=== PATIENT | male | born 1935 | race Caucasian/White ===

== ENCOUNTER 2017-03-05 18:49 | Inpatient (IN) | payer OTHER ==
--- NOTE | 2017-03-05 19:38 | SOAPPROG ---
ARIES Progress Note Assessment/Plan: Assessment: 1. Gross hematuria w/ clot retention. 2. BPH. 3. Medication-induced coagulopathy. Plan: 1. CBI. 2. Check labs now and in AM. 3. Reassess extent of hematuria in AM. 4. NPO after MN in case surgery is necessary. 5. Continue Plavix and Eliquis for now. Might need to have these stopped if hematuria persists despite above measures. 6. Will eventually need CT urogram to assess upper urinary tracts for causes of gross hematuria -- will hopefully obtain tomorrow. Subjective: Pt. seen in my office late this afternoon with above-mentioned diagnoses. Direct admit from my office to med/surg. unit w/ telemetry. Hospitalists to be admitting. Discussed w/ Dr. Espinal. ICD10 Worksheet Patient Problems: Problems Problem Status Onset Clot retention of urine Acute Gross hematuria Acute - ICD10 Problem Qualifiers (1) Gross hematuria (2) Clot retention of urine
[2017-03-05] MEDS ORDERED: ONDANSETRON DISINTEGRATING 4 MG TAB PO PRN (20:49)
[2017-03-05] MEDS ORDERED: ONDANSETRON 4 MG/2 ML VIAL IVP PRN (20:49)
[2017-03-05] MEDS ORDERED: ACETAMINOPHEN 325 MG TAB PO PRN (20:49)
[2017-03-05 20:58] LABS: INR 1.3 (0.83-1.16); PROTIME(PATIENT) 16.4 SEC (12.0-15.0)
[2017-03-05] MEDS ORDERED: LR 1,000 ML IV SCH (21:00)
[2017-03-05] MEDS ORDERED: oxyCODONE IR 5 MG TAB PO PRN (21:16)
--- NOTE | 2017-03-05 21:30 | GHP ---
[f rep st] HISTORY AND PHYSICAL DATE OF ADMISSION: 03/05/2017 CHIEF COMPLAINT: Hematuria. PRIMARY UPPER LEATHER CUTTER: Dr. Lutz. HPI: An 81-year-old male with history of coronary artery disease with 2 stents to LAD in October 2016 , urinary retention, recent UTI, who was sent from Dr. Miller's office for persistent hematuria. Per his , he had blood tinged urine starting this past Saturday on the in the morning, however, became very dark with clots later in the day. He denies any dizziness or lightheadedness this weeke nd. Pain in the penis secondary to the catheter. Denies any bladder spasms. He is currently on Trin[place] vix and Eliquis. REVIEW OF SYSTEMS: I completed a 10-point review of systems, negative except as noted in HPI. PAST MEDICAL HISTORY: Hypertension, atrial flutter on Eliquis, coronary artery disease with [address] ents October 2016, history of diverticulosis, history of urinary retention, GERD, Alzheimer's. PAST SURGICAL HISTORY: Incarcerated femoral hernia, bilateral inguinal repair, bilateral RONALD. SOCIAL HISTORY: Lives in [place]. Drinks 1-2 glasses of wine a day. He is . His is an RN. A 50 year pack history of tobacco. No longer smoking. No drugs. FAMILY HISTORY: Dad had TB. Mother with an OK. ALLERGIES: Penicillin. HOME MEDICATIONS: Guaifenesin, Viagra, simvastatin, potassium, omeprazole, Metamucil, lisinopril, ib uprofen, , Celebrex, aspirin 81 mg daily, azithromycin. PHYSICAL EXAMINATION: VITAL SIGNS: Temperature 36.6, blood pressure 134/74, heart rate 86, respirat ions 16, 94% on room air. GENERAL: Well-appearing male sitting in bed, in no acute distress. HEENT : PERRLA. EOMI. Oropharynx clear. CV: Regular rate and rhythm. No murmurs, gallops, rubs. LUNG S: Clear to auscultation. No crackle, wheezing. CV: No lower extremity edema. ABDOMEN: Soft, no ntender, nondistended. : Jacobs in place with dark sanguinous output. No CVA or suprapubic tender ness. MUSCULOSKELETAL: 5/5 upper lower extremity strength. NEURO: 2 through 12 intact. PSYCH: A lert and oriented x3. LABORATORY DATA: WBC 8.5, hemoglobin 14, hematocrit 41, platelets 250. Coags and BMP pending. Base line creatinine 03/02/2017 is 1.2. ASSESSMENT AND PLAN: 1. Hematuria: Unclear etiology at this point. He was sent over from Dr. Miller's office, who plans for continuous bladder irrigation overnight. We will keep n.p.o. after midnight in case of surgery. Given risks versus benefits of recent stents, we will continue Plavix and Eliquis. His H and H is stable. We will repeat this. We will likely need a CT urogram. 2. History of coronary artery disease. Recent left anterior descending stents in October. We will c ontinue aspirin and Plavix at this time. 3. Atrial flutter: Continue Eliquis. 4. Gastroesophageal reflux disease, stable. 5. Recent urinary tract infection. We will continue Bactrim, is on day 4 of 7. 6. History of diverticulosis. No rectal bleeding per his report. 7. Hypertension. We will hold lisinopril with hematuria and reassess in the morning. 8. Diet regular, n.p.o. after midnight. 9. Deep vein thrombosis prophylaxis on Lovenox. DISPOSITION: The patient warrants inpatient admission given acute hematuria, warranting CBI and furt her imaging. /[id number]/MODL
[2017-03-05] MEDS ORDERED: PSYLLIUM METAMUCIL 1 PKT PO PRN (21:58)
[2017-03-05] MEDS: APIXABAN 5 MG TAB PO SCH (22:54)
[2017-03-05] MEDS: TAMSULOSIN HCL 0.4 MG CAP PO SCH (22:54)
[2017-03-05] MEDS: CLOPIDOGREL BISULFATE 75 MG TAB PO SCH (22:54)
[2017-03-05] MEDS: ATORVASTATIN CALCIUM 40 MG TAB PO SCH (22:54)
[2017-03-05] MEDS: SULFAMETHOX/TMP 800/160 MG 1 TAB PO SCH (22:54)
[2017-03-05] MEDS: DONEPEZIL HCL 5 MG TAB PO SCH (22:54)
[2017-03-05] MEDS ORDERED: diphenhydrAMINE 25 MG CAP PO PRN (23:29)
[2017-03-05] MEDS: MELATONIN 3 MG TAB PO SCH (23:43)
[2017-03-06] MEDS ORDERED: SULFAMETHOX/TMP 800/160 MG 1 TAB PO SCH (09:00)
[2017-03-06] MEDS ORDERED: Herbals/Supplements -Info Only PO SCH (09:00)
--- NOTE | 2017-03-06 09:32 | PDMN ---
Medical Necessity Medical necessity: Patient meets inpatient criteria per physician note and [facility] Urologic Disease GRG - (gross hematuria requiring inpatient care/clot retention after cath and irrigation; direct admission from urologist's office w/ gross hematuria w/clots since Sat (4 days); on Plavix and Eliquis w/history of CAD and 2 stents to LAD in Oct, 2016; anticipated LOS > 2 midnights for CBI and likely surgery.)
[2017-03-06] MEDS: APIXABAN 5 MG TAB PO SCH (09:38)
[2017-03-06] MEDS: SULFAMETHOX/TMP 800/160 MG 1 TAB PO SCH ×2 (09:38→20:30)
[2017-03-06] MEDS: PANTOPRAZOLE SODIUM 40 MG TAB PO SCH (09:38)
[2017-03-06] MEDS ORDERED: IOPAMIDOL (ISOVUE-300) 100 ML BTL ONE (10:29)
--- NOTE | 2017-03-06 10:46 | HOSPPROG ---
Hospitalist Progress Note Assessment/Plan: Patient is an 81-year-old male with a history of coronary artery disease with 2 stents to his LAD in October of 2016. He has a history of urinary retention and also had a recent urinary tract infection. He was sent from the urologist's office for persistent hematuria. Today is my 1st encounter with the patient. Chart reviewed. * hematuria -hemoglobin hematocrit are stable -he is getting continuous bladder irrigation -urine continues to be banks red * history coronary artery disease with stents in October -on Plavix -his senior application software engineer is Dr. Nicolas. [phone] * a flutter -Eliquis -currently in sinus rhythm * recent urinary tract infection -day 5 out of 7 for Bactrim treatment * hypertension -currently hypotensive will hold his PRESLEY-inhibitor * plan. Will await further evaluation from the CT scan of the abdomen pelvis. Will discuss his care with Dr. Miller Subjective: Serafin is hungry and wants to eat. Objective: Vital Signs Temp Pulse Resp BP Pulse Ox 37.2 C 75 16 95/61 L 90 L 03/06/17 08:00 03/06/17 08:00 03/06/17 08:00 03/06/17 08:00 03/06/17 08:00 Laboratory Results 03/06/17 05:19 03/05/17 20:40 03/05/17 03/06/17 03/07/17 05:59 05:59 05:59 Intake Total 600 Output Total 1115 Balance -515 PT 16.4 SEC (12.0-15.0) H 03/05/17 20:40 INR 1.30 (0.83-1.16) H 03/05/17 20:40 - Physical Exam Constitutional: no apparent distress, appears nourished, not in pain Eyes: PERRL Ears, Nose, Mouth, Throat: hearing normal Cardiovascular: regular rate and rhythym Respiratory: no respiratory distress Gastrointestinal: normoactive bowel sounds Genitourinary: murray in urethra (banks colored urine) Skin: warm, normal color Musculoskeletal: full muscle strength Neurologic: AAOx3 Psychiatric: interacting appropriately ICD10 Worksheet Patient Problems: Problems Problem Status Onset Clot retention of urine Acute Gross hematuria Acute
[2017-03-06] MEDS ORDERED: NS 1,000 ML IV SCH (11:00)
[2017-03-06] MEDS: AMIODARONE HCL 200 MG TAB PO SCH (12:01)
--- NOTE | 2017-03-06 13:55 | SOAPPROG ---
SOAP Progress Note Assessment/Plan: Assessment: 1. Gross hematuria w/ clot retention: stable. Continued hematuria even w/ CBI, most likely due to coagulopathy. 2. BPH w/ obstruction: this is most likely the etiology for his hematuria. 3. Medication-induced coagulopathy. 4. Kidneys look great on CT urogram. No large clots noted w/in the bladder on CT. Plan: 1. Continue CBI. 2. Reassess hematuria Thurs AM. Even intraoperative prostate fulguration might not successfully stop his bleeding due to his continued intake of Plavix and Eliquis. It would certainly be beneficial to stop at least 1 of these, and it probably makes more sense to stop Eliquis in light of its much shorter half- life. I have discussed this w/ Nenita Ramirez & she will address this w/ his supervisor warping department in [place], or consult [facility] if necessary. 4. NPO again after MN in case surgery is necessary on . Subjective: No complaints. Interested in CT findings. Wants to eat. Objective: Vital Signs Temp Pulse Resp BP Pulse Ox 36.9 C 73 16 117/67 91 L 03/06/17 12:00 03/06/17 12:00 03/06/17 12:00 03/06/17 12:00 03/06/17 12:00 Laboratory Results 03/06/17 05:19 03/05/17 20:40 03/05/17 03/06/17 03/07/17 05:59 05:59 05:59 Intake Total 600 Output Total 1115 Balance -515 PT 16.4 SEC (12.0-15.0) H 03/05/17 20:40 INR 1.30 (0.83-1.16) H 03/05/17 20:40 Physical Exam - Physical Exam General Appearance: WD/WN, alert, no apparent distress Abdomen: non-tender, soft Male Genitalia: other (urine bloody w/o clots on high-rate CBI) Skin: warm/dry Extremities: normal inspection Neuro/Psych: alert, normal mood/affect, oriented x 3 ICD10 Worksheet Patient Problems: Problems Problem Status Onset Clot retention of urine Acute Gross hematuria Acute - ICD10 Problem Qualifiers (1) Gross hematuria (2) Clot retention of urine
--- NOTE | 2017-03-06 16:23 | ASMTCMCOM ---
CM Note CM Note Notes: Anticipate dc home with support of RN spouse when medically stable. CM available if needs/changes. Date Signed: 03/06/2017 04:23 PM Electronically Signed By:Corrie Pettit RN
[2017-03-06] MEDS ORDERED: LACTULOSE 20 GM/30 ML UDCUP PO PRN (19:28)
[2017-03-06] MEDS ORDERED: POLYETHYLENE GLYCOL 3350 17 GM PKT PO PRN (19:28)
[2017-03-06] MEDS ORDERED: BISACODYL 10 MG SUPP PR PRN (19:28)
[2017-03-06] MEDS ORDERED: MAGNESIUM HYDROXIDE 30 ML UDCUP PO PRN (19:28)
[2017-03-06] MEDS: CLOPIDOGREL BISULFATE 75 MG TAB PO SCH (20:30)
[2017-03-06] MEDS: TAMSULOSIN HCL 0.4 MG CAP PO SCH (20:30)
[2017-03-06] MEDS: SENNOSIDES/DOCUSATE SODIUM TAB PO SCH (20:30)
[2017-03-06] MEDS: ATORVASTATIN CALCIUM 40 MG TAB PO SCH (20:31)
[2017-03-06] MEDS: MELATONIN 3 MG TAB PO SCH (20:31)
[2017-03-06] MEDS: DONEPEZIL HCL 5 MG TAB PO SCH (20:31)
[2017-03-06] MEDS ORDERED: MELATONIN 3 MG TAB PO SCH (21:00)
[2017-03-07] MEDS ORDERED: LR 1,000 ML IV SCH (01:30)
[2017-03-07] MEDS: SULFAMETHOX/TMP 800/160 MG 1 TAB PO SCH ×2 (09:08→21:42)
[2017-03-07] MEDS: SENNOSIDES/DOCUSATE SODIUM TAB PO SCH ×2 (09:09→21:42)
[2017-03-07] MEDS: PANTOPRAZOLE SODIUM 40 MG TAB PO SCH (09:10)
[2017-03-07] MEDS: AMIODARONE HCL 200 MG TAB PO SCH (09:10)
--- NOTE | 2017-03-07 09:31 | SOAPPROG ---
SOAP Progress Note Assessment/Plan: Assessment: 1. Gross hematuria w/ clot retention: stable. Significant hematuria improvement since yesterday. 2. BPH w/ obstruction: this is most likely the etiology for his hematuria. 3. Medication-induced coagulopathy. Eliquis stopped yesterday (approval given by pt's industrial spray painter). 4. Kidneys look great on CT urogram. No large clots noted w/in the bladder on CT. Plan: 1. Discontinue CBI, but continue indwelling Jacobs today. 2. Continue observation today. Pt. may ambulate. 3. Continue to hold Eliquis. Subjective: No complaints. Anxious to go home. Objective: Vital Signs Temp Pulse Resp BP Pulse Ox 36.6 C 70 18 118/63 92 03/07/17 07:47 03/07/17 07:47 03/07/17 07:47 03/07/17 07:47 03/07/17 07:47 Laboratory Results 03/07/17 05:27 03/07/17 05:27 03/06/17 03/07/17 03/08/17 05:59 05:59 05:59 Intake Total 600 Output Total 1115 2925 Balance -515 -2925 PT 16.4 SEC (12.0-15.0) H 03/05/17 20:40 INR 1.30 (0.83-1.16) H 03/05/17 20:40 Physical Exam - Physical Exam General Appearance: WD/WN, alert, no apparent distress Abdomen: non-tender, soft Male Genitalia: other (urine clear on low-rate CBI) Skin: warm/dry Extremities: non-tender, normal inspection Neuro/Psych: alert, normal mood/affect, oriented x 3 ICD10 Worksheet Patient Problems: Problems Problem Status Onset Clot retention of urine Acute Gross hematuria Acute - ICD10 Problem Qualifiers (1) Gross hematuria (2) Clot retention of urine
[2017-03-07] MEDS: PSEUDOEPHEDRINE HCL 30 MG TAB PO PRN ×2 (12:57→19:13)
--- NOTE | 2017-03-07 13:42 | HOSPPROG ---
Hospitalist Progress Note Assessment/Plan: Hospitalist Progress Note Assessment/Plan: Patient is an 81-year-old male with a history of coronary artery disease with 2 stents to his LAD in October of 2016. He has a history of urinary retention and also had a recent urinary tract infection. He was sent from the urologist's office for persistent hematuria. Today is my 1st encounter with the patient. Chart reviewed. * hematuria -hemoglobin hematocrit are stable -he is getting continuous bladder irrigation, stopped this am and now restarted for reoccurring bleeding -urine continues to be banks red * history coronary artery disease with stents in October -on Plavix -his property administrator is Dr. Nicolas. [phone] -hold eliquis -follow up when to restart * a flutter -Eliquis -currently in sinus rhythm * recent urinary tract infection -day 6 out of 7 for Bactrim treatment * hypertension -currently hypotensive will hold his PRESLEY-inhibitor * plan. cont CBI, possibly home with murray? per Dr Chelly prado. Subjective: Felling congested. Eager to go home. Objective: Vital Signs Temp Pulse Resp BP Pulse Ox 36.5 C 87 18 108/52 L 95 03/07/17 12:00 03/07/17 12:00 03/07/17 12:00 03/07/17 12:00 03/07/17 12:00 Laboratory Results 03/07/17 05:27 03/07/17 05:27 03/06/17 03/07/17 03/08/17 05:59 05:59 05:59 Intake Total 600 Output Total 1115 2925 Balance -515 -2925 PT 16.4 SEC (12.0-15.0) H 03/05/17 20:40 INR 1.30 (0.83-1.16) H 03/05/17 20:40 - Physical Exam Constitutional: no apparent distress, appears nourished, not in pain Eyes: PERRL, anicteric sclera Ears, Nose, Mouth, Throat: moist mucous membranes, hearing normal, ears appear normal Cardiovascular: No JVD, No tachycardia, No edema Respiratory: no respiratory distress, no rales or rhonchi, reduced air movement Gastrointestinal: normoactive bowel sounds, No tenderness, No ascites Genitourinary: murray in urethra, other (hematuria) Skin: warm, normal color, No erythema Musculoskeletal: normal joint ROM, no joint effusions, generalized weakness Neurologic: AAOx3 Psychiatric: interacting appropriately, not anxious, not encephalopathic, thought process linear ICD10 Worksheet Patient Problems: Problems Problem Status Onset Gross hematuria Acute Clot retention of urine Acute
[2017-03-07] MEDS ORDERED: OPIUM/BELLADONNA ALKALO SUPP PR PRN (18:11)
[2017-03-07] MEDS: CLOPIDOGREL BISULFATE 75 MG TAB PO SCH (21:41)
[2017-03-07] MEDS: MELATONIN 3 MG TAB PO SCH (21:41)
[2017-03-07] MEDS: ATORVASTATIN CALCIUM 40 MG TAB PO SCH (21:41)
[2017-03-07] MEDS: TAMSULOSIN HCL 0.4 MG CAP PO SCH (21:41)
[2017-03-07] MEDS: DONEPEZIL HCL 5 MG TAB PO SCH (21:42)
[2017-03-08] MEDS: SENNOSIDES/DOCUSATE SODIUM TAB PO SCH ×2 (09:19→21:12)
[2017-03-08] MEDS: AMIODARONE HCL 200 MG TAB PO SCH (09:19)
[2017-03-08] MEDS: SULFAMETHOX/TMP 800/160 MG 1 TAB PO SCH (09:19)
[2017-03-08] MEDS: PANTOPRAZOLE SODIUM 40 MG TAB PO SCH (09:19)
[2017-03-08] MEDS: PSEUDOEPHEDRINE HCL 30 MG TAB PO PRN (09:20)
[2017-03-08] MEDS ORDERED: IPRATROPIUM/ALBUTEROL 3 ML DEYVIAL IH PRN (11:34)
--- NOTE | 2017-03-08 11:48 | SOAPPROG ---
SOAP Progress Note Assessment/Plan: Assessment: 1. Gross hematuria w/ clot retention: improved. Had recurrent darkening of his urine after stopping CBI yesterday, but I believe this is more likely due to remaining clots w/in the bladder and not active bleeding. 2. BPH w/ obstruction: this is most likely the etiology for his hematuria. 3. Medication-induced coagulopathy. Eliquis stopped on 03/06. 4. Kidneys look great on CT urogram. No large clots noted w/in the bladder on CT. Plan: 1. Discontinue Jacobs now. Discharge home later today, hopefully without Jacobs if he is voiding adequately after removal. 2. Continue to hold Eliquis after discharge. 3. Due to his severe BPH, recommend he stay off all decongestants (such as Sudafed) -- discussed w/ pt. & hospitalist service. 4. Stop Bactrim. 5. Continue Flomax and begin finasteride (Rx. on chart). 6. I will see him back in the office next week. Subjective: No complaints. States he feels great except for ongoing nasal and sinus congestion which has been an issue for him for more than 1 week. Objective: Vital Signs Temp Pulse Resp BP Pulse Ox 36.6 C 80 16 132/68 H 93 03/08/17 10:23 03/08/17 10:23 03/08/17 10:23 03/08/17 10:23 03/08/17 10:23 Laboratory Results 03/08/17 04:53 03/07/17 05:27 03/07/17 03/08/17 03/09/17 05:59 05:59 05:59 Intake Total 100 Output Total 2925 950 Balance -2925 -850 PT 16.4 SEC (12.0-15.0) H 03/05/17 20:40 INR 1.30 (0.83-1.16) H 03/05/17 20:40 - Time Spent With Patient Time Spent With Patient: 30 mins. (including care coordination) Physical Exam - Physical Exam General Appearance: WD/WN, alert, no apparent distress Male Genitalia: other (urine light pink tinged while ambulating (off CBI)) Neuro/Psych: alert, normal mood/affect, oriented x 3 ICD10 Worksheet Patient Problems: Problems Problem Status Onset Clot retention of urine Acute Gross hematuria Acute - ICD10 Problem Qualifiers (1) Gross hematuria (2) Clot retention of urine
[2017-03-08] MEDS: FINASTERIDE 5 MG TAB PO SCH (14:30)
[2017-03-08] MEDS: FLUTICASONE NASAL 120 SPRAYS/16 GM MDI EACHNARE SCH ×2 (15:17→18:22)
--- NOTE | 2017-03-08 18:00 | SOAPPROG ---
SOAP Progress Note Assessment/Plan: Assessment: 1. Gross hematuria w/ clot retention: improved. Had recurrent darkening of his urine after stopping CBI yesterday, but I believe this is more likely due to remaining clots w/in the bladder and not active bleeding. Per his nurse, he appears to be adequately voiding w/ acceptable PVR's since Jacobs removal, but the pt. does not feel comfortable being discharged this evening. 2. BPH w/ obstruction: this is most likely the etiology for his hematuria. 3. Medication-induced coagulopathy. Eliquis stopped on 03/06. 4. Kidneys look great on CT urogram. No large clots noted w/in the bladder on CT. Plan: He may be discharged home at anytime from my standpoint. All of today's previous recommendations still apply. Objective: Vital Signs Temp Pulse Resp BP Pulse Ox 36.8 C 84 16 130/68 H 96 03/08/17 14:23 03/08/17 14:23 03/08/17 14:23 03/08/17 14:23 03/08/17 14:23 Laboratory Results 03/08/17 04:53 03/07/17 05:27 03/07/17 03/08/17 03/09/17 05:59 05:59 05:59 Intake Total 100 Output Total 2925 950 255 Balance -2925 -850 -255 PT 16.4 SEC (12.0-15.0) H 03/05/17 20:40 INR 1.30 (0.83-1.16) H 03/05/17 20:40 ICD10 Worksheet Patient Problems: Problems Problem Status Onset Clot retention of urine Acute Gross hematuria Acute - ICD10 Problem Qualifiers (1) Gross hematuria (2) Clot retention of urine
--- NOTE | 2017-03-08 18:49 | GDS ---
[f rep st] DISCHARGE SUMMARY DISCHARGE DIAGNOSES: 1. Gross hematuria. 2. Nasal congestion. 3. History of coronary artery disease with stent placement. 4. History of atrial flutter. 5. Urinary tract infection. 6. Hypertension. CONSULTATIONS: Dr. Miller of Urology. STUDIES AND PROCEDURES DONE: CT of the abdomen. PHYSICAL EXAMINATION: GENERAL: The patient is alert. VITAL SIGNS: Afebrile at 36.8, pulse 74, res piratory rate 16, blood pressure is 130/68. He is saturating 96% on room air. I have seen and evaluated the patient on the day of discharge. HOSPITAL COURSE: Patient is an 81-year-old male, who presented to the hospital with hematuria. He w as evaluated and diagnosed with: 1. Gross hematuria. The etiology of this is unclear. During this hospitalization, CT of the abdome n does not demonstrate any masses or lesions. The patient has received continuous bladder irrigation , and his Jacobs has been discontinued in an attempt for him to be discharged without Jacobs catheter i n place. If he is unable to urinate, he will continue Jacobs catheter at the time of disposition. Fo gregorywup will be with his urologist, Dr. Miller. I reviewed this with Dr. Miller, who is in agreement with the plan. 2. History of coronary artery disease. The patient has had recent stenting in October. He is on Trinidad vix. This does need to be continued. He is also on Eliquis. His Eliquis has been discontinued duri ng this hospitalization secondary to his gross hematuria. He will follow up with his regular cardiol ogist, Dr. Lutz, to reinitiate his Eliquis in the future. 3. History of atrial flutter. He is in sinus rhythm and stable. Continues to be off his Eliquis. 4. Recent urinary tract infection. He received Bactrim as a treatment. This has been discontinued. 5. Hypertension. Stable. DISPOSITION: Again, the patient will be discharged home with his independently. DISCHARGE INSTRUCTIONS: He is having a voiding trial prior to disposition. If he is unable to urina te appropriately, his Jacobs catheter will be replaced, and he will be discharged home with a catheter in place. FOLLOWUP: He will follow up with Dr. Miller in the outpatient setting, as well as his primary care reggie jones. PENDING STUDIES: There are no pending studies. DISCHARGE MEDICATIONS: Please refer to EMR form. I have not provided any prescriptions at the time of disposition. However, he has been started on Proscar 5 mg daily. His previously prescribed Eliqu is has been discontinued at the time of disposition. I have spent greater than 35 minutes in the care, coordination, and management of the patient's disch arge. /[id number]/MODL
[2017-03-08] MEDS: DONEPEZIL HCL 5 MG TAB PO SCH (21:12)
[2017-03-08] MEDS: ATORVASTATIN CALCIUM 40 MG TAB PO SCH (21:12)
[2017-03-08] MEDS: MELATONIN 3 MG TAB PO SCH (21:12)
[2017-03-08] MEDS: CLOPIDOGREL BISULFATE 75 MG TAB PO SCH (21:12)
[2017-03-08] MEDS: TAMSULOSIN HCL 0.4 MG CAP PO SCH (21:12)
[2017-03-09 03:10] VITALS: RESP 18
[2017-03-09 07:38] VITALS: BP 112/67; PULSE 95; TEMP 98.2; O2SAT 88
[2017-03-09] MEDS: FINASTERIDE 5 MG TAB PO SCH (09:04)
[2017-03-09] MEDS: AMIODARONE HCL 200 MG TAB PO SCH (09:04)
[2017-03-09] MEDS: SENNOSIDES/DOCUSATE SODIUM TAB PO SCH (09:04)
[2017-03-09] MEDS: PANTOPRAZOLE SODIUM 40 MG TAB PO SCH (09:05)
--- NOTE | 2017-03-09 10:41 | HOSPPROG ---
Hospitalist Progress Note Assessment/Plan: 81-year-old male admitted with gross hematuria and bladder outlet obstruction. He had CBI to clear the gross hematuria in the Jacobs was removed. Jacobs was removed yesterday and though he was able to [employer] he was having significant hematuria and the patient and staff decided to delay his discharge till this morning. The bleeding has ceased and the patient is comfortable returning home. Patient is new to me today Past medical history of atrial fib and flutter on Eliquis anticoagulation; CAD disease post stent and on Plavix. Both Potter and Plavix were on hold Patient reports he feels slightly lightheaded when he has atrial fib flutter. He has no complaints now. Exam shows regular rate and rhythm heart appears normal in presumably in sinus rhythm lungs are clear he is alert and oriented and urine appears clear. Discussed discharge follow-up with patient including need see his chronic manager Dr. Noam Greenfield are within 1 week and coordinate restarting to coagulation with Dr. Francois. Dr. Swenson will see in follow-up Plan was also discussed the patient's all questions were answered and plan was reviewed. Time: 50 min Objective: Vital Signs Temp Pulse Resp BP Pulse Ox 36.8 C 95 18 112/67 88 L 03/09/17 07:36 03/09/17 07:36 03/09/17 07:36 03/09/17 07:36 03/09/17 07:36 Laboratory Results 03/08/17 04:53 03/07/17 05:27 03/08/17 03/09/17 03/10/17 05:59 05:59 05:59 Intake Total 100 500 Output Total 950 980 350 Balance -850 -480 -350 PT 16.4 SEC (12.0-15.0) H 03/05/17 20:40 INR 1.30 (0.83-1.16) H 03/05/17 20:40 ICD10 Worksheet Patient Problems: Problems Problem Status Onset Clot retention of urine Acute Gross hematuria Acute
--- NOTE | 2017-03-09 11:08 | ASMTCMCOM ---
CM Note CM Note Notes: SWer called beside RN. Pt. d/cing independently today to the care of his . Date Signed: 03/09/2017 11:08 AM Electronically Signed By:Deana Timmons LCSW
--- NOTE | 2017-03-09 16:54 | ASDISCHSUM ---
Discharge Information Plan Status:Home with No Needs Medically Cleared to Leave: Discharge Date:03/09/2017 12:34 PM CM D/C Disposition:Home, Routine, Self-Care ADT D/C Disposition:Home, Routine, Self-Care Projected Discharge Date:03/09/2017 12:34 PM Transportation at D/C: Discharge Delay Reason: Follow-Up Date:03/09/2017 12:34 PM Discharge Slot: Final Diagnosis: Placement Information Patient Contact Information Contact Name:JARED Relationship: Address:[address] [address] City:[place] Alternate Phone: [facility]/Zip Code:[place] [address] Email: Financial Information Financial Class:Medicare Advantage Plans Primary Plan Desc:[facility] [employer] PLANS Primary Plan Number:[id number] Secondary Plan Desc: Secondary Plan Number: Assessment Information [facility] CM Progress Note CM Note CM Note Notes: Anticipate dc home with support of RN spouse when medically stable. CM available if needs/changes. Date Signed: 03/06/2017 04:23 PM Electronically Signed By:Corrie Pettit RN [facility] CM Progress Note CM Note CM Note Notes: SWer called beside RN. PtRadha george/wing independently today to the care of his . Date Signed: 03/09/2017 11:08 AM Electronically Signed By:Deana Timmons LCSW Case Management Discharge Plan Note Case Management Discharge Discharge Order Complete? Answers: Yes Patient to Obtain Answers: via Family Medications Transportation Arranged Answers: Family/Friends Discharge Comments Notes: Pt. george/wing independently to his today. Date Signed: 03/09/2017 11:09 AM Electronically Signed By:Deana Timmons LCSW Intervention Information
== END 2017-03-09 12:34 | disposition home or self-care (01) | DRG 696 ==
LOC: F3N 19:40 → F3E 19:50
PROVIDERS: ADMIT Internal Medicine; ATTEND Internal Medicine
DX: R31.0 Gross hematuria (principal); R09.81 Nasal congestion; N40.1 Benign prostatic hyperplasia with lower urinary tract symptoms; N13.8 Other obstructive and reflux uropathy; I25.10 Atherosclerotic heart disease of native coronary artery without angina pectoris; I48.92 Unspecified atrial flutter; N39.0 Urinary tract infection, site not specified; I10 Essential (primary) hypertension; K21.9 Gastro-esophageal reflux disease without esophagitis; R33.9 Retention of urine, unspecified; Z79.01 Long term (current) use of anticoagulants; Z79.02 Long term (current) use of antithrombotics/antiplatelets; Z95.5 Presence of coronary angioplasty implant and graft
CPT/HCPCS: Q9967

== ENCOUNTER 2017-03-09 18:36 | Observation (INO) | payer OTHER ==
--- NOTE | 2017-03-09 19:08 | EDPHY ---
H & P Stated Complaint: DC'd today from [facility];again having urinary retention,dribbling, constipation Time Seen by Provider: 03/09/17 18:44 HPI/ROS: CHIEF COMPLAINT: Unable to urinate or have a bowel move HISTORY OF PRESENT ILLNESS: This is an 81-year-old male who was admitted to this hospital on 03/05/17 with gross hematuria. At that time he was on Plavix and Eliquis (h/o CAD s/p stenting and h/o atrial flutter). Eliquis has subsequently been discontinued. CT scan performed on March 06 showed a large volume of stool in the colon. When he presents tonight he states that he feels the urge to have a bowel movement but has been unable to do so. He also has not been able to urinate since leaving the hospital today around noon. He is dribbling some urine. He denies abdominal pain. When admitted he was taking Bactrim for urinary tract infection, this has been discontinued. Jacobs catheter that was placed the day of admission was removed the day before his discharge with subsequent normal urination per the patient. He has been started on Proscar. He seen in consultation by Dr. Miller during this hospitalization. REVIEW OF SYSTEMS: A ten point review of systems was performed and is negative with the exception of the items mentioned in the HPI. Past medical history: 1. BPH 2. Hypertension 3. Atrial flutter 4. Diverticulosis 5. Alzheimer's disease 6. Urinary retention Past surgical history: 1. Stent placement x 2 (11/2016) 2. Angioplasty Family history: Noncontributory Social history: . Lives in [place]. Retired. General Appearance: Alert. Vital signs reviewed. Blood pressure 124/71. Eyes: Pupils equal and round, no conjunctival injection, no discharge. Anicteric. ENT, Mouth: Mucous membranes are moist, no oropharyngeal erythema or edema. Respiratory: Lungs are clear to auscultation; no wheezes, rales, or rhonchi. Cardiovascular: Regular rate and rhythm; no murmur, rub, or gallop. Gastrointestinal: Abdomen is soft and mildly tender in both lower quadrants, no guarding, no masses or organomegaly, bowel sounds normal. Rectal: No palpable stool in the rectal vault. No significant tenderness. Normal rectal tone. Skin: Warm and dry, no rashes on exposed skin, normal color. Back: Nontender to palpation over the thoracolumbar spine. No CVAT. Extremities: No lower extremity edema, no calf tenderness or swelling. Neurological: Alert and oriented. Moving all four extremities easily and equally. Psychiatric: Normal affect. - Personal History Current Tetanus Diphtheria and Acellular Pertussis (TDAP): Yes - Medical/Surgical History Hx Asthma: No Hx Chronic Respiratory Disease: No Hx Diabetes: No Hx Cardiac Disease: Yes Hx Renal Disease: No Hx Cirrhosis: No Hx Alcoholism: No Hx HIV/AIDS: No Hx Splenectomy or Spleen Trauma: No Other PMH: BPH, HTN, 2 stents Nov 2016, angioplasty, a flutter, diverticulosis , alzheimers, urinary retention - Social History Smoking Status: Former smoker Constitutional: Initial Vital Signs Temperature (C) 36.8 C 03/09/17 18:51 Heart Rate 86 03/09/17 18:51 Respiratory Rate 18 03/09/17 18:51 Blood Pressure 124/71 H 03/09/17 18:51 O2 Sat (%) 94 03/09/17 18:51 Allergies/Adverse Reactions: Penicillins Allergy (Unknown, Verified 03/09/17 18:51) Home Medications: Medication Instructions Recorded Acetaminophen [Tylenol 325mg (*)] 325 mg PO Q6 PRN 03/05/17 Amiodarone HCl [Pacerone (*)] 200 mg PO DAILY 03/05/17 Atorvastatin Calcium [Lipitor 40 40 mg PO HS 03/05/17 mg (*)] Clopidogrel Bisulfate [Clopidogrel] 75 mg PO HS 03/05/17 Donepezil HCl [Aricept 5 MG (*)] 5 mg PO HS 03/05/17 Omeprazole [Prilosec 20 mg] 20 mg PO DAILY 03/05/17 Psyllium Husk [Metamucil] 660 gm PO DAILY PRN 03/05/17 Tamsulosin HCl [Flomax 0.4 MG (*)] 0.4 mg PO HS 03/05/17 Acetaminophen [Tylenol 325mg (*)] 650 mg PO Q4HRS PRN tab 03/08/17 Finasteride [Proscar 5 MG (*)] 5 mg PO DAILY #30 tab 03/08/17 Fluticasone Nasal [Flonase Nasal 2 sprays EACHNARE DAILY mdi 03/08/17 [place]] Psyllium Seed [Metamucil (*)] 1 each PO DAILY PRN pkt 03/08/17 Sennosides/Docusate Sodium 1 - 2 tab PO BID tab 03/08/17 [Senokot-S] Medical Decision Making ED Course/Re-evaluation: This 81 year old male, recently admitted for hematuria and discharged today, presents with inability to urinate or have a bowel movement. He did void about 60 mLs into a urinal and bladder scan postvoid showed 60 mLs. He continues to feel as if he needs to void. Urinalysis positive for blood in leukocyte esterase. This was not a clean catch. I do not suspect UTI. Rectal exam does not reveal any palpable stool in the rectal vault. I reviewed the CT scan of the abdomen and pelvis that was performed on the 3rd of this month and confirmed that it shows significant amount of stool in the colon. Initially planned to try an enema, but there is no palpable stool and nursing staff does not feel that he will be able to retain the enema fluid. He will need mag citrate or Golytely. Given his dementia and age I think that he will need to have his constipation/obstipation treated in the hospital. I do not suspect bowel obstruction. He is mildly tender in the lower abdomen to palpation. No vomiting or nausea. I suspect that his constipation is multi- factorial with precipitants including urinary retention, relative immobility, decreased water intake, possibly low dietary fiber. Differential Diagnosis: Differential diagnosis includes but is not limited to urinary retention, urinary tract infection, prostatitis, pyelonephritis,constipation, obstipation, and small obstruction. - Data Points Laboratory Results: 03/09/17 03/09/17 20:50 20:00 Urine Color YELLOW Urine Appearance HAZY Urine pH 6.0 (5.0-7.5) Ur Specific [place] 1.008 (1.002-1.030) Urine Protein NEGATIVE (NEGATIVE) Urine Ketones TRACE H (NEGATIVE) Urine Blood 3+ H (NEGATIVE) Urine Nitrate NEGATIVE (NEGATIVE) Urine Bilirubin NEGATIVE (NEGATIVE) Urine Urobilinogen NEGATIVE EU EU (0.2-1.0) Ur Leukocyte Esterase 1+ H (NEGATIVE) Urine RBC 10-15 /hpf H /hpf (0-3) Urine WBC 15-25 /hpf H /hpf (0-3) Ur Epithelial Cells TRACE /lpf /lpf (NONE-1+) Urine Glucose NEGATIVE (NEGATIVE) Stool Occult Bld Scrn NEGATIVE (NEGATIVE) Medications Given: Acetaminophen (Tylenol) 650 mg PO Q4HRS PRN PRN Reason: Pain, Mild/Fever, Can Take PO Stop: 09/05/17 21:37 Last Admin: 03/10/17 05:47 Dose: 650 mg Discontinued Medications Polyethylene Glycol/Electrolytes (Gavilyte - G) 4,000 ml PO ONCE ONE Stop: 03/09/17 21:39 Last Admin: 03/09/17 22:40 Dose: 4,000 ml Departure - Departure Disposition: [facility] Acute Clinical Impression: Constipated Qualifiers: Constipation type: unspecified constipation type Qualified Code(s): K59.00 - Constipation, unspecified Condition: Good Report Scribed for: Geni Landis Report Scribed by: Carmella Stallworth Date of Report: 03/09/17 Time of Report: 19:43 Physician Review and Approval Statement: 03/09/17 19:08 Portions of this note were transcribed by the biomedical engineering director. I, Dr. Geni Landis, personally performed the history, physical exam, and medical decision- making; and confirmed the accuracy of the information in the transcribed note.
[2017-03-09] MEDS ORDERED: ONDANSETRON DISINTEGRATING 4 MG TAB PO PRN (21:38)
[2017-03-09] MEDS ORDERED: PEG 3350/NA SULF,BICARB,CL/KCL (GAVILYTE-G) 4000 ML BTL PO ONE (21:38)
[2017-03-09] MEDS ORDERED: ONDANSETRON 4 MG/2 ML VIAL IVP PRN (21:38)
[2017-03-09] MEDS ORDERED: ACETAMINOPHEN 325 MG TAB PO PRN (21:38)
--- NOTE | 2017-03-09 23:04 | GHP ---
[f rep st] HISTORY AND PHYSICAL DATE OF ADMISSION: 03/09/2017 HISTORY OF PRESENT ILLNESS: The patient is an 81-year-old gentleman was recently admitted to the [facility] with urinary retention secondary to hematuria. He was discharged without a Jacobs this morning. He returns to the hospital with abdominal pain and difficulty with urination. He is also noted to be constipated with no bowel movement since admission. He had a CAT scan on the that at that rama e showed hypertension. He feels like he needs to go the bathroom, but he has been able to go and suzan ble to go. He denies fever, chills, abdominal pain. He has not had nausea, vomiting, or diarrhea. He typically struggles with constipation. He used to take Metamucil, but his doctor told him to stop it. PAST MEDICAL HISTORY: 1. BPH. 2. Hypertension. 3. Atrial flutter. 4. Diverticulosis. Alzheimer's. 5. Urinary retention. 6. Stent placement x2 in November 2016. FAMILY HISTORY: Unremarkable. SOCIAL HISTORY: . Lives in [place]. Retired. ALLERGIES: Penicillins. MEDICATION: Home medications are: 1. Tamsulosin. 2. Senna. 3. Psyllium. 4. Omeprazole. 5. Fluticasone. 6. Finasteride. 7. . 8. Clopidogrel. 9. Atorvastatin. 10. Amiodarone. 11. Tylenol. PHYSICAL EXAMINATION: VITAL SIGNS: Temp 36.8, blood pressure 112/67, pulse 95, breathing 18 times a minute, 80% on room air. GENERAL: No acute distress. HEENT: Sclerae anicteric. Oropharynx clear . Mucous membranes are moist. NECK: Supple without lymphadenopathy or JVD. LUNGS: Clear to auscu ltation bilaterally. HEART: S1, S2. ABDOMEN: Soft, nontender, nondistended. EXTREMITIES: Lower extremities without edema. Calves nontender. SKIN: Without rash. NEUROLOGIC: Exam is nonfocal. LABS: There are no labs today. CT scan interpreted by me from the 3rd shows constipation. I discussed the case with Dr. Geni hoyt. ASSESSMENT/PLAN: An 81-year-old gentleman who presents with constipation. 1. Constipation. Attempted rectal examination revealed no stool. I will provide a GoLYTELY prep. 2. Urinary retention. Will continue his recently prescribed finasteride and Flomax. His postvoid r esiduals were 60. 3. Coronary artery disease. Continue his medications. 4. Atrial fibrillation. Continue his medications. DISPOSITION: Observation, prophylaxis, SCDs. /[id number]/MODL
--- NOTE | 2017-03-10 11:16 | ASMTCMCOM ---
CM Note CM Note Notes: Chart reviewed. Patient recently discharged to home independently. Here for constipation. Likely no needs. CM available to follow if needs arise. Date Signed: 03/10/2017 11:15 AM Electronically Signed By:Halie Fountain RN
[2017-03-10] MEDS ORDERED: NON-FORMULARY NEW DRUG (Omeprazole [Prilosec 20 Mg] 20 MG) PO SCH (13:30)
[2017-03-10] MEDS: AMIODARONE HCL 200 MG TAB PO SCH (13:56)
[2017-03-10] MEDS: FINASTERIDE 5 MG TAB PO SCH (13:56)
[2017-03-10] MEDS: TAMSULOSIN HCL 0.4 MG CAP PO SCH ×2 (14:09→14:14)
[2017-03-10] MEDS: CLOPIDOGREL BISULFATE 75 MG TAB PO SCH ×2 (14:10→14:13)
--- NOTE | 2017-03-10 15:12 | PDDCSUM ---
Discharge Summary Discharge Summary: 81 yo male with recent admission and discharge for gross hematuria and urinary retention admitted with constipation. Resolved with Go-Lytely. Reported urinary retention but PVR minimal and has been able to void. Reviewed most recent admission and discharge notes from yesterday and the recommendation from Urology is for murray placement and outpatient follow up if still symptomatic. He will be monitored for the next few hours and if unable to void, nursing will place murray. Of note, he has had 3 PVR's and they have been appropriate and he has also had witnessed voids. He will fu with urology next week no changes to his med regimen were made ddx: constipation urinary retention exam: NAD AAOX3 RRR CTA B S/NT/ND NO EDEMA Meds: see med rec f/u: with urology next week total time spent on discharge including coordination of care is 35 mins
[2017-03-10] MEDS: HYDROmorphONE/DILAUDID 1 MG/ML INJ IVP PRN ×3 (16:43→17:38)
[2017-03-10] MEDS: HYDROCODONE/APAP 5/325 TAB PO PRN ×2 (16:44→18:42)
[2017-03-10] MEDS ORDERED: LIDOCAINE 2% JELLY 20 ML (UROJECT) UR ONE ×2 (17:30→18:30)
[2017-03-10] MEDS ORDERED: OPIUM/BELLADONNA ALKALO SUPP PR ONE (18:30)
[2017-03-10] MEDS ORDERED: DONEPEZIL HCL 5 MG TAB PO SCH (21:00)
[2017-03-10] MEDS ORDERED: ATORVASTATIN CALCIUM 40 MG TAB PO SCH (21:00)
--- NOTE | 2017-03-10 21:09 | PDCONSULT ---
Superintendent Greens Note: Consult requested by Dr. Britton [facility] difficult murray HPI Very pleasant 81M admitted for gross hematuria 03/05/2017, initially managed with CBI by Dr. Miller. He was discharged this morning without a murray and then readmitted with constipation and inability to void. His constipation resolved after golytely, but he still unable to void today except for small amounts. Nurses attempted murray placement this evening, but were not successful and urology lead recreation assistant asked to evaluate. At arrival, his murray appears to be malpositioned, suspected murray balloon inflated in the prostate. He feels like he wants to void and has been having bladder spasms with urine going around the murray. REVIEW OF SYSTEMS: A ten point review of systems was performed and is negative with the exception of the items mentioned in the HPI. Past medical history: 1. BPH 2. Hypertension 3. Atrial flutter 4. Diverticulosis 5. Alzheimer's disease 6. Urinary retention Past surgical history: 1. Stent placement x 2 (11/2016) 2. Angioplasty Family history: Noncontributory Social history: . Lives in [place]. Retired. PE AFVSS Gen: NAD A&O CV: Regular Lungs: normal effort Abd: soft : murray appears to be too far externalized and suspect balloon inflated in the prostate. Balloon deflated and murray removed. Large clot follows murray tip. Prepped using sterile technique w betadine prep and sterile towels and sheet. Lidocaine jelly instilled per urethra. Attempted 18F coude, but met resistance at prostate. Then Placed 16F murray catheter without difficulty, return of reddish clear urine. I manually removed about 200ml of reddish but clear urine, no clots. Then I irrigated with 1L NS, irrigation was light red clear, again no clots encountered. Murray connected to tubing. Nursing would connect stat lock. A/P Difficult murray, prostameagly, gross hematuria Recommend home w murray tomorrow. IF any issue tonight, nurse instructed to call me. Encouraged patient increase water intake and Hospitalist would start gentle IV hydration to help increase urine output. Send urine for UA/micro/cx if indicated. Will notify Dr. Miller of this consult.
[2017-03-11 04:53] VITALS: TEMP 97.8
[2017-03-11 07:44] VITALS: BP 159/92; PULSE 87; RESP 18; O2SAT 90
[2017-03-11] MEDS ORDERED: FLUTICASONE NASAL 120 SPRAYS/16 GM MDI EACHNARE SCH (09:00)
[2017-03-11] MEDS ORDERED: PANTOPRAZOLE SODIUM 40 MG TAB PO SCH (09:00)
[2017-03-11] MEDS ORDERED: MAGNESIUM HYDROXIDE 30 ML UDCUP PO ONE (10:01)
[2017-03-11] MEDS: AMIODARONE HCL 200 MG TAB PO SCH (10:15)
[2017-03-11] MEDS: FINASTERIDE 5 MG TAB PO SCH (10:15)
--- NOTE | 2017-03-11 11:16 | ASMTCMCOM ---
CM Note CM Note Notes: Patient medically cleared for dc to home independently. He has no identifiable needs, CM available should needs arise. Will dc home with murray in place and f/u with urology. Date Signed: 03/11/2017 11:16 AM Electronically Signed By:Halie Fountain RN
[2017-03-11] MEDS ORDERED: CLOPIDOGREL BISULFATE 75 MG TAB PO ONE (12:45)
--- NOTE | 2017-03-14 09:45 | PDDCSUM ---
Discharge Summary Discharge Summary: 81 yo male with recent admission and discharge for gross hematuria and urinary retention admitted with constipation. Resolved with Go-Lytely. Reported urinary retention but PVR minimal and has been able to void some but still concerns re retention. Urology, Dr Gonzalez, was consulted and placed a murray. On the day of discharge he felt well and wanted to go home. He is feeling a bit sad about recent admission, so I strongly encouraged him to discuss this with his PCP. He will fu with urology next week and should FU with his PCP later this week No changes to his med regimen were made Diagnosis: constipation, resolved urinary retention, s/p murray exam: VSS NAD, laughs, very interactive RRR CTA B S/NT/ND NO EDEMA Meds: see med rec total time spent on discharge including coordination of care is 35 mins
== END 2017-03-11 14:15 | disposition home or self-care (01) ==
LOC: F3N 22:17
PROVIDERS: ADMIT Internal Medicine; ATTEND Family Medicine
PROC: 0T9B70Z Drainage of Bladder with Drainage Device, Via Natural or Artificial Opening (ICD-10-PCS; principal; 2017-03-09)
DX: K59.00 Constipation, unspecified (principal); N40.1 Benign prostatic hyperplasia with lower urinary tract symptoms; R33.9 Retention of urine, unspecified; I10 Essential (primary) hypertension; I48.92 Unspecified atrial flutter; I25.10 Atherosclerotic heart disease of native coronary artery without angina pectoris; Z95.5 Presence of coronary angioplasty implant and graft; Z79.02 Long term (current) use of antithrombotics/antiplatelets; K57.30 Diverticulosis of large intestine without perforation or abscess without bleeding; G30.9 Alzheimer's disease, unspecified
CPT/HCPCS: 51703; G0378; J1170; J2405